=== PATIENT | female | born 1970 | race Caucasian/White ===

== ENCOUNTER → 2017-02-23 | Outpatient (CLI) | payer OTHER | LOC: CIMAGING 10:10 | PROVIDERS: ATTEND Family Medicine | DX: R94.5 Abnormal results of liver function studies (principal) | CPT/HCPCS: 76705-PO ==

== ENCOUNTER → 2018-05-13 | Outpatient (CLI) | payer OTHER | LOC: FIMAGING 11:51 | PROVIDERS: ATTEND Obstetrics & Gynecology Gynecology | DX: Z12.31 Encounter for screening mammogram for malignant neoplasm of breast (principal) ==

== ENCOUNTER 2018-08-25 06:13 | Observation (INO) | payer OTHER ==
[2018-08-25] MEDS ORDERED: ceFAZolin 2 GM/DEXTROSE 100 ML IV ONE (06:21)
[2018-08-25] MEDS ORDERED: LIDOCAINE 1% 2 ML INJ ID PRN (06:23)
[2018-08-25] MEDS ORDERED: LR 1,000 ML IV ONE (06:23)
--- NOTE | 2018-08-25 07:22 | PDANEPAE ---
ANE History of Present Illness 48 y/o female with dysfunctional uterine bleeding here for TVH salpingectomy. H/o PONV at age 25. Plan TIVA. Will offer intrathecal duramorph if that is Dr. Tan's preference. ANE Past Medical History - Cardiovascular History Hx Hypertension: No Hx Arrhythmias: No Hx Chest Pain: No Hx Coronary Artery / Peripheral Vascular Disease: No Hx CHF / Valvular Disease: No Hx Palpitations: No Cardiovascular History Comment: PAC'S PVC'S - Pulmonary History Hx COPD: No Hx Asthma/Reactive Airway Disease: No Hx Recent Upper Respiratory Infection: No Hx Oxygen in Use at Home: No Hx Sleep Apnea: No Sleep Apnea Screening Result - Last Documented: Negative - Neurologic History Hx Cerebrovascular Accident: No Hx Seizures: No Hx Dementia: No - Endocrine History Hx Diabetes: No Hypothyroid: Yes - Renal History Hx Renal Disorders: No - Liver History Hx Hepatic Disorders: No - Neurological & Psychiatric Hx Hx Neurological and Psychiatric Disorders: No - Cancer History Hx Cancer: No - Congenital Disorder History Hx Congenital Disorders: No - GI History Hx Gastrointestinal Disorders: No - Other Health History Other Health History: DYSMENORREA - Chronic Pain History Chronic Pain: No - Surgical History Prior Surgeries: 2 s ANE Review of Systems Review of Systems: - Exercise capacity Exercise capacity: >=4 METS METS (RN): 5 METS ANE Patient History - Allergies Allergies/Adverse Reactions: No Known Allergies Allergy (Unverified 12/10/17 11:34) - Home Medications Home medications: home medication list seen and reviewed Home Medications: Cholecalciferol Vit D3 [Vitamin D3 (*)] 1,000 units PO DAILY 08/12/18 [Last Taken 08/11/18] Herbals/Supplements -Info Only 1 ea PO DAILY 08/12/18 [Last Taken 08/11/18] Thyroid,Pork [Thyroid] 15 mg PO DAILY 08/12/18 [Last Taken 08/25/18 05:00] Thyroid,Pork [Thyroid] 30 mg PO DAILY 08/12/18 [Last Taken 08/25/18 05:00] - NPO status NPO Status: no food or drink >8 hours NPO Since - Liquids (Date): 08/24/18 NPO Since - Liquids (Time): 20:00 NPO Since - Solids (Date): 08/24/18 NPO Since - Solids (Time): 20:00 - Smoking Hx Smoking Status: Never smoked - Family Anes Hx Family Hx Anesthesia Complications: none ANE Labs/Vital Signs - Labs - CBC Platelet Count: 252 - Vital Signs Vital Signs: reviewed preoperatively; see RN documention for details Blood Pressure: 107/74 Heart Rate: 56 Respiratory Rate: 16 O2 Sat (%): 97 Height: 162.56 cm Weight: 55.792 kg ANE Physical Exam - Airway Neck exam: FROM Mallampati Score: Class 1 Mouth exam: normal dental/mouth exam - Pulmonary Pulmonary: clear to auscultation - Cardiovascular Cardiovascular: regular rate and rhythym - ASA Status ASA Status: II ANE Anesthesia Plan Anesthesia Plan: general endotracheal anesthesia Total IV Anesthesia: Yes
[2018-08-25] MEDS ORDERED: SCOPOLAMINE HYDROBROMIDE 1 MG/3 DAYS PATCH TD ONE (07:44)
[2018-08-25] MEDS ORDERED: MIDAZOLAM 2 MG/2 ML VIAL IVP ONE (07:44)
[2018-08-25] MEDS ORDERED: PROPOFOL/EMULSION 500 MG/50 ML BOTTLE IV ONE ×3 (07:55→09:45)
[2018-08-25] MEDS ORDERED: PROPOFOL 200 MG/20 ML VIAL ONE (07:55)
[2018-08-25] MEDS ORDERED: fentaNYL 100 MCG/2 ML INJ ONE ×2 (07:58→11:05)
[2018-08-25] MEDS ORDERED: DEXMEDETOMIDINE HCL 400 MCG in NS 100 ML IV SCH (08:00)
[2018-08-25] MEDS ORDERED: DEXAMETHASONE 4 MG/ML VIAL ONE (08:00)
[2018-08-25] MEDS ORDERED: VASOPRESSIN 20 UNIT/ML VIAL ONE (08:00)
[2018-08-25] MEDS ORDERED: ROCURONIUM 50 MG/5 ML VIAL ONE ×2 (08:04→09:19)
[2018-08-25] MEDS ORDERED: morphINE PF 0.2 MG in SYRINGE INTRATHECAL 1 SYR IT ONE (08:17)
--- NOTE | 2018-08-25 08:17 | PDHPUP ---
History & Physical Update H&P update statement: This history and physical update is based on an assessment of the patient which was completed after admission or registration (within 24 hours), but prior to the surgery/procedure. H&P update: H&P reviewed & patient examined, no change in patient's condition since H&P completed
[2018-08-25] MEDS ORDERED: ONDANSETRON 4 MG/2 ML VIAL ONE ×2 (09:41→10:21)
[2018-08-25] MEDS ORDERED: KETOROLAC 30 MG/1 ML SDV ONE (09:42)
[2018-08-25] MEDS ORDERED: ONDANSETRON 4 MG/2 ML VIAL IVP PRN (09:48)
[2018-08-25] MEDS ORDERED: NALOXONE HCL 0.4 MG/ML INJ IVP PRN (09:48)
[2018-08-25] MEDS ORDERED: PHENYLEPHRINE HCL 100 MCG/ML SYR IVP PRN (09:48)
[2018-08-25] MEDS ORDERED: ALBUTEROL 3 ML DEYVIAL IH PRN (09:48)
[2018-08-25] MEDS ORDERED: ACETAMINOPHEN 500 MG TAB PO PRN (09:48)
[2018-08-25] MEDS ORDERED: PROMETHAZINE HCL 25 MG/ML INJ IVP PRN (09:48)
[2018-08-25] MEDS ORDERED: DEXAMETHASONE 4 MG/ML VIAL IVP PRN (09:48)
[2018-08-25] MEDS ORDERED: DIAZEPAM 5 MG/ML 1 ML SYR IVP PRN (09:48)
[2018-08-25] MEDS ORDERED: MEPERIDINE 25 MG/0.5 ML AMP IVP PRN (09:48)
[2018-08-25] MEDS ORDERED: METOCLOPRAMIDE 10 MG/2 ML VIAL IVP PRN (09:48)
[2018-08-25] MEDS ORDERED: LR 500 ML IV PRN (09:48)
[2018-08-25] MEDS ORDERED: NEOSTIGMINE METHYLSULFATE 5 MG/5 ML SYR ONE (09:55)
[2018-08-25] MEDS ORDERED: GLYCOPYRROLATE 0.2 MG/1 ML VIAL ONE (09:55)
--- NOTE | 2018-08-25 10:12 | POSTOPPROG ---
Post Op Note Date of Operation: 08/25/18 Surgeon: Leydi Tan Button Broacher: PAUL Gipson Anesthesiologist: Ria Hawkins, Anesthesia: LMA, Spinal Pre-op Diagnosis: DUB, Post-op Diagnosis: DUB Indication: same Procedure: TVH/BS Findings: nl tissue Inf/Abcess present in the surg proc area at time of surgery?: No EBL: 50-100 Complications: none
[2018-08-25] MEDS ORDERED: HYDROCODONE/APAP 5/325 TAB PO PRN (10:13)
[2018-08-25] MEDS ORDERED: D5W NS 1,000 ML IV SCH (10:15)
[2018-08-25] MEDS: fentaNYL 100 MCG/2 ML INJ IVP PRN ×2 (11:07→11:13)
--- NOTE | 2018-08-25 12:05 | POSTANESTH ---
Post Anesthetic Evaluation Cardiovascular Status: Normal, Stable Respiratory Status: Normal, Stable Level of Consciousness/Mental Status: Mildly Sleepy, Arousable Pain Control: Adequate, Prn Tx Ordered Nausea/Vomiting Control: Adequate, Prn Tx Ordered Complications Possibly Related to Anesthesia: None Noted
--- NOTE | 2018-08-25 13:25 | GOP ---
DATE OF OPERATION: 08/25/2018 SURGEON: Leydi Tan MD BEND SORTER: PAUL Bazzi. ANESTHESIA: Spinal, morphine for postop pain control and general with LMA. ANESTHESIOLOGIST: Ria Hawkins MD. PREOPERATIVE DIAGNOSIS: Dysfunctional uterine bleeding, dysmenorrhea, and likely adenomyosis and dannielle led previous treatment options. POSTOPERATIVE DIAGNOSIS: Dysfunctional uterine bleeding, dysmenorrhea, and likely adenomyosis and fa iled previous treatment options. PROCEDURE PERFORMED: Total vaginal hysterectomy and bilateral salpingectomy. FINDINGS: A normal-appearing cervix, uterus and fallopian tubes and ovaries. ESTIMATED BLOOD LOSS: Less than 100. INDICATIONS: Patient is a 48-year-old, G2, P2 with 2 previous C-sections, has had ongoing painful an d heavy irregular menstrual cycles. She has done trials of progesterone IUD. She has done NovaSure ablation as well as control pills and has failed all three of these. Now desires definitive mehul atment. DESCRIPTION OF PROCEDURE: With informed consent signed, patient was taken to the operating room, robi donn under spinal then general anesthesia. Placed in the high dorsal lithotomy position, prepped and draped in the usual sterile fashion. A weighted speculum placed in the vagina and posterior colpotom y performed with a sharp scissors and then a baseball stitch was used to incorporate the vaginal muco sa to the underlying peritoneum in a running locking fashion. Next, the left uterosacral ligament was clamped, cut, suture ligated, and the same was done on the ri ght. This was tagged. The cardinal ligaments on each side were clamped, cut, and suture ligated. T he uterine vessels on each side along the broad ligament were clamped, cut, and suture ligated. An a nterior colpotomy performed first, noting where the bladder was and dissecting it off the anterior wa ll of the uterus. Then again more bites of the broad ligament clamped, cut, and suture ligated, and then the utero-ovarian ligament was clamped, cut, suture ligated on each side. Then the fallopian tu bes on each side were identified, clamped with Finn, and then transected and handed off for specimen . Hemostasis was assured with sutures and also cautery. The ovaries were noted to be within normal limits. All pedicles were hemostatic, and then the weighted speculum removed. Then the Ramires culdoplasty done grasping the 6 o'clock portion of the vaginal mucosa, grasping the l eft uterosacral ligament, and then bites of the posterior peritoneum and then the right uterosacral l igament and then coming out at the same entry point. This was tied down, obliterating the cul-de-sac , and then the vagina was closed with [id number] sutures. Patient placed in supine position. A wakened in the operating room and taken to the recovery room in stable condition. Tolerated the proce dure well. COMPLICATIONS: None. /[id number]/MODL
[2018-08-25] MEDS: KETOROLAC 30 MG/1 ML SDV IVP PRN ×2 (16:20→22:37)
[2018-08-26] MEDS: KETOROLAC 30 MG/1 ML SDV IVP PRN (05:04)
[2018-08-26 08:40] VITALS: BP 97/58
--- NOTE | 2018-08-26 09:18 | SOAPPROG ---
SOAP Progress Note Assessment/Plan: Assessment:POD #1 doing well , george regular diet ambulating and mild pain Plan: pt to be d/c home , written rx for norco #10 zofran #10 , needs to void and ambulate before going home f/u next week 08/26/18 09:15 po Subjective: eating regular diet but not that hungry , hasn't voided yet and good pain control Objective: abd slightly distended and few bowel sounds, lungs CTA and perineum no bleeding Vital Signs Temp Pulse Resp BP Pulse Ox 36.5 C 57 L 14 97/58 L 95 08/26/18 08:39 08/26/18 08:39 08/26/18 08:39 08/26/18 08:39 08/26/18 08:39 Laboratory Results 08/26/18 05:10 08/25/18 08/26/18 08/27/18 05:59 05:59 05:59 Intake Total 1550 Output Total 1800 Balance -250
--- NOTE | 2018-08-26 09:42 | PDPAINCON ---
Pain Management Consultation Patient referred by : Dominick - Subjective Pain is: low, well controlled Side effects include: itchiness, nausea, No drowsy, No rash Activity: able to ambulate - Objective Technique: spinal opioid (morphine 200mcg) Sensory and motor exam: block has resolved, no apparent ill effects Vital signs: stable - Assessment/Plan Assessment/Plan: pain well-controlled, continue current mgmt Additional comments: POD 1 s/p vaginal hysterectomy with IT morphine 200mcg. Overnight patient experienced nausea and pruritus, which are improving this morning. She reports excellent analgesia and is starting to feel the block recede at this time. She is due to void today. No sensorimotor deficits at this time. She is planned for d/c home today.
[2018-08-26] MEDS ORDERED: IBUPROFEN 600 MG TAB PO SCH (10:16)
== END 2018-08-26 13:00 | disposition home or self-care (01) ==
LOC: F3E 06:13 → FOB 11:50
PROVIDERS: ADMIT Obstetrics & Gynecology Gynecology; ATTEND Obstetrics & Gynecology Gynecology
PROC: 0UT97ZZ Resection of Uterus, Via Natural or Artificial Opening (ICD-10-PCS; principal; 2018-08-25 08:15)
PROC: 0UT77ZZ Resection of Bilateral Fallopian Tubes, Via Natural or Artificial Opening (ICD-10-PCS; principal; 2018-08-25 08:15)
DX: N93.8 Other specified abnormal uterine and vaginal bleeding (principal); N94.6 Dysmenorrhea, unspecified
CPT/HCPCS: 58262; G0378; J0690; J1100; J1885; J2250; J2274; J2405; J2704; J2710; J3010